=== PATIENT | female | born 2000 | race Caucasian/White ===

== ENCOUNTER 2021-06-17 18:43 | Emergency (ER) | payer BC ==
[2021-06-17 18:51] VITALS: RESP 20; TEMP 97.5
--- NOTE | 2021-06-17 19:17 | XR ---
EXAMINATION TYPE: XR wrist complete LT DATE OF EXAM: 06/17/2021 COMPARISON: NONE HISTORY: Pain. Fall. TECHNIQUE: 4 views FINDINGS: There is no sign of fracture nor dislocation. Joint spaces are normal. Scaphoid appears nor mal. Metacarpals appear intact. IMPRESSION: Negative left wrist exam.
[2021-06-17] MEDS ORDERED: IBUPROFEN 800 MG TAB PO STA (20:48)
[2021-06-17 20:51] VITALS: BP 151/102; PULSE 94
--- NOTE | 2021-06-17 20:54 | ED ---
General Adult HPI - General Chief complaint: Extremity Injury, Upper Stated complaint: Fall/Lt Wrist Pain Time Seen by Provider: 06/17/21 20:45 Source: patient, RN notes reviewed, old records reviewed Mode of arrival: ambulatory Limitations: no limitations - History of Present Illness Initial comments: Well-appearing 21-year-old female presents ambulatory with complaints of falling yesterday on an outstretched arm injuring her left wrist. Patient denies any pain in her fingers or elbow. She states that pain with flexion of the wrist that radiates into her mid forearm. -: days(s) (1) Location: left, upper extremity (wrist) Radiation: proximal (forearm) Severity scale (1-10): 6 Quality: constant Consistency: constant Improves with: immobilization Worsens with: movement Associated Symptoms: denies other symptoms Treatments Prior to Arrival: none - Related Data Previous Rx's Medication Instructions Recorded Ibuprofen [Motrin] 800 mg PO Q6HR #30 tab 06/17/21 Allergies Allergy/AdvReac Type Severity Reaction Status Date / Time No Known Allergies Allergy Verified 06/17/21 18:51 Review of Systems ROS Statement: Those systems with pertinent positive or pertinent negative responses have been documented in the HPI. ROS Other: All systems not noted in ROS Statement are negative. Past Medical History Past Medical History: No Reported History History of Any Multi-Drug Resistant Organisms: None Reported Past Surgical History: No Surgical Hx Reported Past Psychological History: No Psychological Hx Reported Smoking Status: Never smoker Past Alcohol Use History: Occasional Past Drug Use History: Marijuana General Exam Limitations: no limitations General appearance: alert, in no apparent distress Head exam: Present: atraumatic Eye exam: Present: normal appearance Respiratory exam: Absent: respiratory distress Cardiovascular Exam: Present: tachycardia Left Elbow exam: Present: normal inspection. Absent: tenderness Forearm Wrist exam: Present: full ROM, tenderness. Absent: swelling, abrasion, laceration, ecchymosis, deformity, crepitus, dislocation, erythema, tenderness over anatomical snuff box, pain with axial thumb loading Hand Wrist exam: Present: normal inspection, full ROM. Absent: tenderness, swelling, abrasion, ecchymosis, erythema Neuro motor exam: Present: wrist extension intact, thumb opposition intact, thumb IP flexion intact, thumb adduction intact, fingers 2-5 abduction intact, other (Pain with flexion of the wrist to volar surface forearm) Neurosensory exam: Present: 2-point discrimination, radial nerve intact, ulnar nerve intact, median nerve intact Vascular: Present: normal capillary refill, radial pulse. Absent: vascular compromise Neurological exam: Present: alert, oriented X3, normal gait Psychiatric exam: Present: normal affect, normal mood Skin exam: Present: warm, dry, normal color. Absent: cyanosis, diaphoretic, petechiae, pallor Course Vital Signs 06/17/21 06/17/21 18:49 20:49 Temperature 97.5 F L Pulse Rate 104 H 94 Respiratory 20 20 Rate Blood Pressure 158/108 151/102 O2 Sat by Pulse 99 98 Oximetry Medical Decision Making - Medical Decision Making Patient presents after a fall yesterday on outstretched left arm complaining of left wrist pain. X-ray is negative for fracture or dislocation. Metacarpals are intact. There is no evidence of bruising. No scaphoid tenderness. She has good range of motion and is neurovascularly intact. There is no wounds. Patient was given an Andrea wrap directed to rest, ice, elevate and use Motrin for inflammation and pain for the next 3 days. Follow-up with orthopedics or her primary care doctor next week. Return to the emergency room with any new or concerning symptoms. Patient's blood pressure is elevated at this visit and I did advise her to discuss hypertension with her primary care doctor although this may be related to pain. Patient is agreeable to this plan of care. Disposition Clinical Impression: Wrist sprain Disposition: HOME SELF-CARE Condition: Good Instructions (If sedation given, give patient instructions): Wrist Injury (ED) Additional Instructions: Rest, ice, elevate and wear andrea wrap for compression. Follow-up with the primary care doctor next week. Increase your fluid intake. Return to the emergency room with any new or concerning symptoms including increased pain, numbness or tingling. Your blood pressure was elevated at this visit. Please discuss this with your primary care doctor. It may be related to pain however it is important to have it reevaluated. Prescriptions: Ibuprofen [Motrin] 800 mg PO Q6HR #30 tab Is patient prescribed a controlled substance at d/c from ED?: No Referrals: Amrik Whitman DO [Primary Care Provider] - 1-2 days Time of Disposition: 20:59
== END 2021-06-17 21:12 | disposition home or self-care (01) ==
LOC: EC 18:43
DX: S63.502A Unspecified sprain of left wrist, initial encounter (principal); F12.90 Cannabis use, unspecified, uncomplicated; W19.XXXA Unspecified fall, initial encounter
CPT/HCPCS: 99284

== ENCOUNTER 2023-02-09 19:27 | Emergency (ER) | payer BC ==
--- NOTE | 2023-02-09 19:38 | ED ---
Back Pain HPI - General Source: patient, RN notes reviewed <Kita Carbajal - Last Filed: 02/09/23 19:36> - General Source: patient, RN notes reviewed, old records reviewed <Rishi Araujo - Last Filed: 02/09/23 23:47> - General Stated Complaint: Back pain Time Seen by Provider: 02/09/23 19:36 - History of Present Illness Initial Comments: patient is a 22-year-old female presented ER with chief complaint of back pain. Patient denies any fevers, IV drug use, saddle paresthesias, or bowel or bladder incontinence. Patient does report pain radiates. (Kita Carbajal) Patient is a 22 female who originally evaluated is a quick note. Presents with chronic lower back pain. No red flag symptoms denying any paresthesias, saddle anesthesias, paralysis, urinary or bowel incontinence or retention. No fevers or chills. 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 Wanted to be evaluated the pain is slightly worse today. Has been hurting her but became worse today. located mostly on the right paraspinal muscle. No significant radiation. No other acute complaints at this time. Denies trauma. Workup already started. (Rishi Araujo) - Related Data Previous Rx's Medication Instructions Recorded Ibuprofen [Motrin] 800 mg PO Q6HR #30 tab 06/17/21 Lidocaine 5% Patch [Lidoderm 5% 1 patch TOPICAL DAILY PRN 14 Days 02/09/23 Patch] #14 patch Allergies Allergy/AdvReac Type Severity Reaction Status Date / Time No Known Allergies Allergy Verified 06/17/21 18:51 Review of Systems ROS Other: All systems not noted in ROS Statement are negative. <Kita Carbajal - Last Filed: 02/09/23 19:36> ROS Other: All systems not noted in ROS Statement are negative. <Rishi Araujo - Last Filed: 02/09/23 23:47> ROS Statement: Those systems with pertinent positive or pertinent negative responses have been documented in the HPI. Review of Systems: CONST: Denies fever EYES: Denies blurry vision ENT: Denies nasal congestion C/V: Denies Chest pain RESP: Denies shortness of breath GI: Denies abdominal pain : Denies dysuria SKIN: Denies rash. MSK: Endorses chronic back pain. NEURO: Denies headache (Rishi Araujo) Past Medical History Past Medical History: No Reported History History of Any Multi-Drug Resistant Organisms: None Reported Past Surgical History: No Surgical Hx Reported Past Psychological History: No Psychological Hx Reported Smoking Status: Never smoker Past Alcohol Use History: Occasional Past Drug Use History: Marijuana <Kita Carbajal - Last Filed: 02/09/23 19:36> General Exam <Kita Carbajal - Last Filed: 02/09/23 19:36> <Rishi Araujo - Last Filed: 02/09/23 23:47> - General Exam Comments Initial Comments: Visual Physical Exam Vital signs reviewed General: Well-appearing, nontoxic, no acute distress. Head: Normocephalic, atraumatic Eyes: PERRLA, EOMI ENT: Airway patent Chest: Nonlabored breathing Skin: No visual rash, normal skin tone Neuro: Alert and oriented 3 Musculoskeletal: No gross abnormalities (Kita Carbajal) General: Appears in no acute distress. HEAD: Normal with no signs of head trauma. EYES: PERRLA, EOMI, conjunctiva normal, no discharge. ENT: Hearing grossly intact, normal oropharynx. RESPIRATORY: Clear breath sounds bilaterally. No wheezes, rales, or rhonchi. C/V: Regular rate and rhythm. S1 and S2 auscultated, no edema, peripheral pulses 2+ and intact throughout ABD: Abd is soft, nontender, nondistended EXT: Normal range of motion, no obvious deformity. Pelvis is stable. Mild right-sided paraspinal muscle tenderness to palpation in the lower lumbar spine. SKIN: No rashes or lesions observed on exposed skin. NEURO: Alert and oriented 4. No focal deficits.. (Rishi Araujo) Course Vital Signs 02/09/23 19:54 Temperature 98.8 F Pulse Rate 106 H Respiratory 20 Rate Blood Pressure 161/92 O2 Sat by Pulse 97 Oximetry Medical Decision Making <Kita Carbajal - Last Filed: 02/09/23 19:36> <Rishi Araujo - Last Filed: 02/09/23 23:47> - Medical Decision Making I performed the quick note portion of the exam. Electronically signed by Kita Carbajal PA-C (Kita Carbajal) Was pt. sent in by a medical professional or institution ([facility], [facility], urgent care, hospital, or custodial...) When possible be specific @ -No Did you speak to anyone other than the patient for history (EMS, parent, family, police, friend...)? What history was obtained from this source @ -No Did you review nursing and triage notes (agree or disagree)? Why? @ -I reviewed and agree with nursing and triage notes Were old charts reviewed (outside hosp., previous admission, EMS record, old EKG, old radiological studies, urgent care reports/EKG's, custodial records)? Report findings @ -No old charts were reviewed Differential Diagnosis (chest pain, altered mental status, abdominal pain women, abdominal pain men, vaginal bleeding, weakness, fever, dyspnea, syncope, headache, dizziness, GI bleed, back pain, seizure, CVA, palpatations, mental health, musculoskeletal)? @ -Differential Musculoskeletal Muscular strain, contusion, ligament sprain, fracture, arthritis, septic arthritis, bursitis, cellulitis, muscle spasm, nerve compression, DVT, arterial occlusion, herpes zoster, electrolyte abnormality, tumor.... This is not meant to be in all inclusive list EKG interpreted by me (3pts min.). @ -None done X-rays interpreted by me (1pt min.). @ -No acute injury or findings seen on lumbar spine x-ray. CT interpreted by me (1pt min.). @ -None done U/S interpreted by me (1pt. min.). @ -None done What testing was considered but not performed or refused? (CT, X-rays, U/S, labs)? Why? @ -None What meds were considered but not given or refused? Why? @ -None Did you discuss the management of the patient with other professionals (professionals i.e. JARRED Sanchez, [facility] [employer]LLOWER, lab, RT, psych nurse, social work coordinator, nursing assistants teacher, teacher, forest fire officer, case planner)? Give summary @ -No Was smoking cessation discussed for >3mins.? @ -No Was critical care preformed (if so, how long)? @ -No Were there social determinants of health that impacted care today? How? (Homelessness, low income, unemployed, alcoholism, drug addiction, transportation, low edu. Level, literacy, decrease access to med. care, usp, rehab)? @ -No Was there de-escalation of care discussed even if they declined (Discuss DNR or withdrawal of care, Hospice)? DNR status @ -No What co-morbidities impacted this encounter? (DM, HTN, Smoking, COPD, CAD, Cancer, CVA, ARF, Chemo, Hep., AIDS, mental health diagnosis, sleep apnea, morbid obesity)? @ -None Was patient admitted / discharged? Hospital course, mention meds given and route, prescriptions, significant lab abnormalities, going to OR and other pertinent info. @ -Based on patient's presentation and physical exam, has back pain. This is chronic. This appears to be musculoskeletal. Originally evaluated quickly. Has no red flag symptoms, and there is no concern for cauda equina syndrome at this time. Lumbar spine x-ray was obtained while patient was in triage and is negative for any obvious acute process. Patient was symptomatically treated with analgesic medications and discharged home. She was in agreement this plan. I did offer work note which she declined. Vital signs are within acceptable limits. I will provide the patient with a prescription for lidocaine patches. I instructed the patient to follow up with their PCP in the next 1-3 days. I explained that the patient should return to the emergency department if they experience any worsening symptoms. Strict return precautions were discussed with the patient. The patient expressed understanding of these instructions. I answered all questions that the patient had. The patient was discharged home in good condition with their prescriptions and follow up information. Undiagnosed new problem with uncertain prognosis? @ -No Drug Therapy requiring intensive monitoring for toxicity (Heparin, Nitro, Insulin, Cardizem)? @ -No Were any procedures done? @ -No Diagnosis/symptom? @ -Back pain Acute, or Chronic, or Acute on Chronic? @ -Acute on chronic Uncomplicated (without systemic symptoms) or Complicated (systemic symptoms)? @ -Uncomplicated Side effects of treatment? @ -No Exacerbation, Progression, or Severe Exacerbation? @ -No Poses a threat to life or bodily function? How? (Chest pain, USA, ID, pneumonia, PE, COPD, DKA, ARF, appy, cholecystitis, CVA, Diverticulitis, Homicidal, Suicidal, threat to staff... and all critical care pts) @ -No (Rishi Araujo) Disposition <Kita Carbajal - Last Filed: 02/09/23 19:36> Is patient prescribed a controlled substance at d/c from ED?: No Time of Disposition: 20:41 <Rishi Araujo - Last Filed: 02/09/23 23:47> Clinical Impression: Back pain Disposition: HOME SELF-CARE Condition: Good Instructions (If sedation given, give patient instructions): Acute Low Back Pain (ED) Prescriptions: Lidocaine 5% Patch [Lidoderm 5% Patch] 1 patch TOPICAL DAILY PRN 14 Days #14 patch PRN Reason: Pain Referrals: Elsi Hilario [Primary Care Provider] - 1-2 days
[2023-02-09 20:42] VITALS: BP 161/92; PULSE 106; RESP 20; TEMP 98.8
[2023-02-09] MEDS ORDERED: LIDOCAINE 4% PATCH TOPICAL STA (20:44)
[2023-02-09] MEDS ORDERED: IBUPROFEN 800 MG TAB PO STA (20:44)
--- NOTE | 2023-02-09 21:32 | XR ---
EXAMINATION TYPE: XR lumbar spine 2 or 3V DATE OF EXAM: 02/09/2023 Comparison: None Clinical History: 22-year-old female low back pain for 2 weeks Findings: 5 lumbar type vertebral bodies. Straightening of the normal lumbar lordosis. Disc spaces and vertebra l body heights are preserved. Alignment is maintained. Impression: Straightening of the normal lumbar lordosis could be positional or due to muscle spasm. Otherwise, no vertebral compression collapse or malalignment.
== END 2023-02-09 21:09 | disposition home or self-care (01) ==
LOC: EC 19:27
DX: M54.9 Dorsalgia, unspecified (principal); F12.90 Cannabis use, unspecified, uncomplicated
CPT/HCPCS: 72100; 99283

== ENCOUNTER 2023-03-01 07:03 | Emergency (ER) | payer BC ==
--- NOTE | 2023-03-01 07:32 | ED ---
General Adult HPI - General Chief complaint: Recheck/Abnormal Lab/Rx Stated complaint: Insomnia Time Seen by Provider: 03/01/23 07:07 Source: patient, RN notes reviewed, old records reviewed Mode of arrival: ambulatory Limitations: no limitations - History of Present Illness Initial comments: 22-year-old female with insomnia. Patient states she's had trouble sleeping for some time. She states she scheduled to see her primary care provider in the next 2 weeks and has a sleep study scheduled. She states she has a watch the [employer] sleep and she states that she has had quality sleep according to her watch. She does report caffeine use. She denies alcohol. - Related Data Previous Rx's Medication Instructions Recorded Ibuprofen [Motrin] 800 mg PO Q6HR #30 tab 06/17/21 Lidocaine 5% Patch [Lidoderm 5% 1 patch TOPICAL DAILY PRN 14 Days 02/09/23 Patch] #14 patch Allergies Allergy/AdvReac Type Severity Reaction Status Date / Time No Known Allergies Allergy Verified 03/01/23 07:16 Review of Systems ROS Statement: Those systems with pertinent positive or pertinent negative responses have been documented in the HPI. ROS Other: All systems not noted in ROS Statement are negative. Past Medical History Past Medical History: No Reported History History of Any Multi-Drug Resistant Organisms: None Reported Past Surgical History: No Surgical Hx Reported Past Psychological History: No Psychological Hx Reported Smoking Status: Never smoker Past Alcohol Use History: Occasional Past Drug Use History: Marijuana General Exam Limitations: no limitations General appearance: alert, in no apparent distress Head exam: Present: atraumatic, normocephalic Eye exam: Present: normal appearance, PERRL ENT exam: Present: normal exam Neck exam: Present: normal inspection. Absent: tenderness, meningismus Respiratory exam: Present: normal lung sounds bilaterally. Absent: respiratory distress, wheezes Cardiovascular Exam: Present: regular rate, normal rhythm GI/Abdominal exam: Present: soft. Absent: distended, tenderness, guarding Neurological exam: Present: alert, oriented X3, CN II-XII intact. Absent: motor sensory deficit Psychiatric exam: Present: normal affect, normal mood Skin exam: Present: warm, dry, intact Course Vital Signs 03/01/23 07:14 Temperature 98.3 F Pulse Rate 96 Respiratory 18 Rate Blood Pressure 121/83 O2 Sat by Pulse 96 Oximetry Medical Decision Making - Medical Decision Making Was pt. sent in by a medical professional or institution ([facility] Sanchez, RECREATIONAL AIDE, urgent care, hospital, or care home...) When possible be specific @ -No Did you speak to anyone other than the patient for history (EMS, parent, family, police, friend...)? What history was obtained from this source @ -No Did you review nursing and triage notes (agree or disagree)? Why? @ -I reviewed and agree with nursing and triage notes Were old charts reviewed (outside hosp., previous admission, EMS record, old EKG, old radiological studies, urgent care reports/EKG's, care home records)? Report findings @ -No old charts were reviewed Differential Diagnosis (chest pain, altered mental status, abdominal pain women, abdominal pain men, vaginal bleeding, weakness, fever, dyspnea, syncope, headache, dizziness, GI bleed, back pain, seizure, CVA, palpatations, mental health, musculoskeletal)? @ -[Insomnia EKG interpreted by me (3pts min.). @ -As above X-rays interpreted by me (1pt min.). @ -None done CT interpreted by me (1pt min.). @ -None done U/S interpreted by me (1pt. min.). @ -None done What testing was considered but not performed or refused? (CT, X-rays, U/S, labs)? Why? @ -None What meds were considered but not given or refused? Why? @ -None Did you discuss the management of the patient with other professionals (wendie sierra i.eJARRED Mead [address] RECREATIONAL AIDE, lab, RT, psych nurse, social work program coordinator, roof truss machine tender, teacher, education officer, transplant case manager)? Give summary @ -No Was smoking cessation discussed for >3mins.? @ -No Was critical care preformed (if so, how long)? @ -No Were there social determinants of health that impacted care today? How? (Homelessness, low income, unemployed, alcoholism, drug addiction, transportation, low edu. Level, literacy, decrease access to med. care, intermediate, rehab)? @ -No Was there de-escalation of care discussed even if they declined (Discuss DNR or withdrawal of care, Hospice)? DNR status @ -No What co-morbidities impacted this encounter? (DM, HTN, Smoking, COPD, CAD, Cancer, CVA, ARF, Chemo, Hep., AIDS, mental health diagnosis, sleep apnea, morbid obesity)? @ -None Was patient admitted / discharged? Hospital course, mention meds given and route, prescriptions, significant lab abnormalities, going to OR and other pertinent info. @ -22-year-old female with insomnia. She is instructed on sleep hygiene. Patient has an appointment scheduled. She will attempt measures including GoLYTELY in the evening, no caffeine, increase exercise throughout the day, and no screens in the several hours before bedtime. Undiagnosed new problem with uncertain prognosis? @ -No Drug Therapy requiring intensive monitoring for toxicity (Heparin, Nitro, Insulin, Cardizem)? @ -No Were any procedures done? @ -No Diagnosis/symptom? @ -[Insomnia Acute, or Chronic, or Acute on Chronic? @ Acute Uncomplicated (without systemic symptoms) or Complicated (systemic symptoms)? @ -default Side effects of treatment? @ -No Exacerbation, Progression, or Severe Exacerbation? @ -No Poses a threat to life or bodily function? How? (Chest pain, USA, [place], pneumonia, PE, COPD, DKA, ARF, appy, cholecystitis, CVA, Diverticulitis, Homicidal, Suicidal, threat to staff... and all critical care pts) @ -No Disposition Clinical Impression: Acute insomnia Disposition: HOME SELF-CARE Condition: Good Instructions (If sedation given, give patient instructions): Insomnia (ED) Is patient prescribed a controlled substance at d/c from ED?: No Referrals: Elsi Hilario [Primary Care Provider] - 1-2 days Time of Disposition: 07:34
[2023-03-01 07:36] VITALS: BP 121/83; PULSE 96; RESP 18; TEMP 98.3
== END 2023-03-01 07:49 | disposition home or self-care (01) ==
LOC: EC 07:03
DX: G47.00 Insomnia, unspecified (principal); F12.90 Cannabis use, unspecified, uncomplicated
CPT/HCPCS: 99283

== ENCOUNTER 2023-05-03 09:13 | Emergency (ER) | payer BC ==
[2023-05-03 09:24] VITALS: TEMP 98.1
[2023-05-03] MEDS: AMOXIC-POT CLAV 875-125MG 1 EACH TAB PO STA (09:44)
[2023-05-03] MEDS: DEXAMETHASONE SOD PHOSPHATE 10 MG/ML 1 ML VIAL IM STA (09:46)
--- NOTE | 2023-05-03 09:50 | ED ---
ENT HPI - General Chief complaint: ENT Stated complaint: Possibly strep throat Time Seen by Provider: 05/03/23 09:18 Source: patient, RN notes reviewed Mode of arrival: ambulatory Limitations: no limitations - History of Present Illness Initial comments: This is a 23-year-old female who presents to the emergency department for a sore throat. States that she did a polar plunge last week and swallowed a bunch of water. Afterwards she started to develop a sore throat that started to get much worse. Reports a significant history of strep throat, and believes that she likely has it again. She has noticed white spots in her throat as well. Denies any fever/chills or other URI symptoms. MD complaint: sore throat - Related Data Previous Rx's Medication Instructions Recorded Ibuprofen [Motrin] 800 mg PO Q6HR #30 tab 06/17/21 Lidocaine 5% Patch [Lidoderm 5% 1 patch TOPICAL DAILY PRN 14 Days 02/09/23 Patch] #14 patch Allergies Allergy/AdvReac Type Severity Reaction Status Date / Time No Known Allergies Allergy Verified 05/03/23 09:18 Review of Systems ROS Statement: Those systems with pertinent positive or pertinent negative responses have been documented in the HPI. ROS Other: All systems not noted in ROS Statement are negative. Past Medical History Past Medical History: No Reported History History of Any Multi-Drug Resistant Organisms: None Reported Past Surgical History: Tonsillectomy Past Psychological History: No Psychological Hx Reported Smoking Status: Never smoker Past Alcohol Use History: Occasional Past Drug Use History: Marijuana General Exam Limitations: no limitations General appearance: alert, in no apparent distress Head exam: Present: atraumatic, normocephalic, normal inspection ENT exam: Present: other (Posterior pharyngeal erythema. Tonsils are surgically absent.) Respiratory exam: Present: normal lung sounds bilaterally. Absent: respiratory distress, wheezes, rales, rhonchi, stridor Cardiovascular Exam: Present: regular rate, normal rhythm, normal heart sounds. Absent: systolic murmur, diastolic murmur, rubs, gallop, clicks Neurological exam: Present: alert, oriented X3, CN II-XII intact Psychiatric exam: Present: normal affect, normal mood Skin exam: Present: warm, dry, intact, normal color. Absent: rash Course Vital Signs 05/03/23 05/03/23 09:14 10:53 Temperature 98.1 F 98.1 F Pulse Rate 95 90 Respiratory 20 18 Rate Blood Pressure 120/74 122/76 O2 Sat by Pulse 96 99 Oximetry Medical Decision Making - Medical Decision Making This is a 23-year-old female who presents to the emergency department for sore throat. Was pt. sent in by a medical professional or institution? @ -No Did you speak to anyone other than the patient for history? @ -No Did you review nursing and triage notes? @ -Yes, and I agree, it is accurate with regards to the patient's symptoms. Were old charts reviewed? @ -No Differential Diagnosis? @ -Differential Sore Throat: Strep pharyngitis, herpes zoster, COVID, influenza, GERD, allergic rhinitis, mononucleosis, this is not meant to be an all-inclusive list. EKG interpreted by me (3pts min.)? @ -Not obtained X-rays interpreted by me (1pt min.)? @ -Not obtained CT interpreted by me (1pt min.)? @ -Not obtained U/S interpreted by me (1pt. min.)? @ -Not obtained What testing was considered but not performed? (CT, X-rays, U/S, labs)? Why? @ -None What meds were considered but not given? Why? @ -None Did you discuss the management of the patient with other professionals? @ -No Did you reconcile home meds? @ -No Was smoking cessation discussed for >3mins.? @ -No Was critical care preformed (if so, how long)? @ -No Were there social determinants of health that impacted care today? How? (Homelessness, low income, unemployed, alcoholism, drug addiction, transportation, low edu. Level, literacy, decrease access to med. care, [facility], rehab)? @ -No Was there de-escalation of care discussed even if they declined? (Discuss DNR or withdrawal of care, Hospice)? @ -No What co-morbidities impacted this encounter? (DM, HTN, Smoking, COPD, CAD, Cancer, CVA, Hep., AIDS, mental health diagnosis, sleep apnea, morbid obesity)? @ -None Was patient admitted / discharged? @ -Discharged. Rapid strep test negative. COVID, influenza, and RSV testing were negative. Decadron administered in the emergency department. Symptoms are likely viral in nature. Advised ibuprofen and Tylenol as needed for pain relief. Patient discharged home in stable condition. Undiagnosed new problem with uncertain prognosis? @ -None Drug Therapy requiring intensive monitoring for toxicity (Heparin, Nitro, Insulin, Cardizem)? @ -None Were any procedures done? @ -None Diagnosis/symptom? @ -Pharyngitis Acute, or Chronic, or Acute on Chronic? @ -Acute Uncomplicated (without systemic symptoms) or Complicated (systemic symptoms)? @ -Uncomplicated Side effects of treatment? @ -None Exacerbation, Progression, or Severe Exacerbation] @ -Not applicable Poses a threat to life or bodily function? @ -No Return precautions reviewed in depth, the patient is instructed to return to the emergency department with any new, worsening, or concerning symptoms. Patient verbalized understanding. This case was discussed in detail with the attending ED physician, Dr. Mora. Presentation, findings, and treatment plan discussed in detail as well. - Lab Data Lab Results 05/03/23 05/03/23 Range/Units 09:26 09:26 Influenza Type A (PCR) Not Detected (Not Detectd) Influenza Type B (PCR) Not Detected (Not Detectd) RSV (PCR) Not Detected (Not Detectd) SARS-CoV-2 (PCR) Not Detected (Not Detectd) Group A Strep (PCR) NOT DETECTED (Not Detectd) Disposition Clinical Impression: Pharyngitis Disposition: HOME SELF-CARE Instructions (If sedation given, give patient instructions): Pharyngitis (ED) Additional Instructions: Return to the emergency department with any new, worsening, or concerning symptoms. Alternate with ibuprofen and Tylenol as needed for pain relief. Follow up with your primary care provider in 1-2 days. Is patient prescribed a controlled substance at d/c from ED?: No Referrals: Elsi Hilario [Primary Care Provider] - 1-2 days Time of Disposition: 10:34
[2023-05-03 10:55] VITALS: BP 122/76; PULSE 90; RESP 18
== END 2023-05-03 10:54 | disposition home or self-care (01) ==
LOC: EC 09:13
DX: J02.9 Acute pharyngitis, unspecified (principal); F12.90 Cannabis use, unspecified, uncomplicated; Z20.822 Contact with and (suspected) exposure to COVID-19
CPT/HCPCS: 87651; 87636; 99283; 96372; J1100

== ENCOUNTER 2023-08-30 18:18 | Emergency (ER) | payer OTHER, BC ==
--- NOTE | 2023-08-30 19:07 | ED ---
Wound/Laceration HPI - General Chief Complaint: Wound/Laceration Stated Complaint: stitches Time Seen by Provider: 08/30/23 18:30 Source: patient, RN notes reviewed Mode of arrival: ambulatory Limitations: no limitations - History of Present Illness Initial Comments: This is a 23-year-old female presents the emergency department chief complaint of a laceration to her first digit. Patient states that she was at work attempting to open a popsicle running bracket, piece of sheet metal, when her hand slipped slicing it on the metal. She states that bleeding was controlled at the time of the incident and she cleansed the area with water and a gauze was applied. She states that she has full mobility of the thumb and denies paresthesias. States that she is up-to-date on her tetanus vaccine. - Related Data Previous Rx's Medication Instructions Recorded Ibuprofen [Motrin] 800 mg PO Q6HR #30 tab 06/17/21 Lidocaine 5% Patch [Lidoderm 5% 1 patch TOPICAL DAILY PRN 14 Days 02/09/23 Patch] #14 patch Acet/Diph/Lido/Bziu-Lej-Gqn-Si 5 ml PO Q4-6H PRN #240 ml 05/09/23 [Tyl/Benadryl/Lido/Maalox] predniSONE 50 mg PO DAILY 5 Days #5 tab 05/09/23 Allergies Allergy/AdvReac Type Severity Reaction Status Date / Time No Known Allergies Allergy Verified 08/30/23 18:42 Review of Systems ROS Statement: Those systems with pertinent positive or pertinent negative responses have been documented in the HPI. ROS Other: All systems not noted in ROS Statement are negative. Past Medical History Past Medical History: No Reported History Additional Past Medical History / Comment(s): sleep apnea History of Any Multi-Drug Resistant Organisms: None Reported Past Surgical History: Tonsillectomy Past Psychological History: No Psychological Hx Reported Smoking Status: Never smoker Past Alcohol Use History: Occasional Past Drug Use History: Marijuana General Exam Limitations: no limitations General appearance: alert, in no apparent distress Head exam: Present: atraumatic, normocephalic, normal inspection Eye exam: Present: normal appearance, PERRL, EOMI. Absent: scleral icterus, conjunctival injection, periorbital swelling ENT exam: Present: normal exam, mucous membranes moist Neck exam: Present: normal inspection. Absent: tenderness, meningismus, lymphadenopathy Respiratory exam: Present: normal lung sounds bilaterally. Absent: respiratory distress, wheezes, rales, rhonchi, stridor Cardiovascular Exam: Present: regular rate, normal rhythm, normal heart sounds. Absent: systolic murmur, diastolic murmur, rubs, gallop, clicks GI/Abdominal exam: Present: soft, normal bowel sounds. Absent: distended, tenderness, guarding, rebound, rigid Left Hand Wrist exam: Present: normal inspection, full ROM, laceration (first digit avulsion roughly 2.5 cm). Absent: erythema Vascular: Present: normal capillary refill. Absent: vascular compromise Back exam: Present: normal inspection Neurological exam: Present: alert, oriented X3, CN II-XII intact Course Vital Signs 08/30/23 18:39 Temperature 98.3 F Pulse Rate 77 Respiratory 18 Rate Blood Pressure 143/90 O2 Sat by Pulse 98 Oximetry Medical Decision Making - Medical Decision Making Was pt. sent in by a medical professional or institution (, PA, MANAGER SPECIALTY, urgent care, hospital, or [facility]...) When possible be specific @ -No Did you speak to anyone other than the patient for history (EMS, parent, family, police, friend...)? What history was obtained from this source @ -No Did you review nursing and triage notes (agree or disagree)? Why? @ -I reviewed and agree with nursing and triage notes Were old charts reviewed (outside hosp., previous admission, EMS record, old EKG, old radiological studies, urgent care reports/EKG's, [facility] records)? Report findings @ -No old charts were reviewed Differential Diagnosis (chest pain, altered mental status, abdominal pain women, abdominal pain men, vaginal bleeding, weakness, fever, dyspnea, syncope, headache, dizziness, GI bleed, back pain, seizure, CVA, palpatations, mental health, musculoskeletal)? @ -Laceration, skin avulsion, this list is not all inclusive. EKG interpreted by me (3pts min.). @ -None X-rays interpreted by me (1pt min.). @ -None done CT interpreted by me (1pt min.). @ -None done U/S interpreted by me (1pt. min.). @ -None done What testing was considered but not performed or refused? (CT, X-rays, U/S, labs)? Why? @ -None What meds were considered but not given or refused? Why? @ -None Did you discuss the management of the patient with other professionals (professionals i.e. , JARRED, MANAGER SPECIALTY, lab, RT, psych nurse, social work faculty member, cable machine operator, teacher, international first officer, transplant case manager)? Give summary @ -No Was smoking cessation discussed for >3mins.? @ -No Was critical care preformed (if so, how long)? @ -No Were there social determinants of health that impacted care today? How? (Homelessness, low income, unemployed, alcoholism, drug addiction, transportation, low edu. Level, literacy, decrease access to med. care, shelter, rehab)? @ -No Was there de-escalation of care discussed even if they declined (Discuss DNR or withdrawal of care, Hospice)? DNR status @ -No What co-morbidities impacted this encounter? (DM, HTN, Smoking, COPD, CAD, Cancer, CVA, ARF, Chemo, Hep., AIDS, mental health diagnosis, sleep apnea, morbid obesity)? @ -None Was patient admitted / discharged? Hospital course, mention meds given and route, prescriptions, significant lab abnormalities, going to OR and other pertinent info. @ -Discharge. 23-year-old female with a laceration to the left first digit. On examination there is a area of skin avulsion measuring approximately 2.5 cm. This area is not deep enough for suture repair. Area was cleansed with sterile water and 1% lidocaine was infiltrated in the area for cleansing. Steri-Strips placed over the wound and wrapped with gauze. Recommend that patient keep the area clean and dry over the next week. Patient is up-to-date on tetanus vac cine. Case discussed with Dr. Pack. Undiagnosed new problem with uncertain prognosis? @ -No Drug Therapy requiring intensive monitoring for toxicity (Heparin, Nitro, Insulin, Cardizem)? @ -No Were any procedures done? @ -No Diagnosis/symptom? @ -Skin avulsion Acute, or Chronic, or Acute on Chronic? @ -acute Uncomplicated (without systemic symptoms) or Complicated (systemic symptoms)? @ -uncomplicated Side effects of treatment? @ -No Exacerbation, Progression, or Severe Exacerbation? @ -No Poses a threat to life or bodily function? How? (Chest pain, [place], [place], pneumonia, PE, COPD, DKA, ARF, appy, cholecystitis, CVA, Diverticulitis, Homicidal, Suicidal, threat to staff... and all critical care pts) @ -No Disposition Clinical Impression: Skin avulsion Disposition: HOME SELF-CARE Condition: Good Instructions (If sedation given, give patient instructions): Skin Avulsion (ED) Additional Instructions: Return the emergency department if symptoms worsen or improve. Continue to keep area clean and dry. Is patient prescribed a controlled substance at d/c from ED?: No Referrals: Elsi Hilario [Primary Care Provider] - 1-2 days Time of Disposition: 19:54
[2023-08-30] MEDS: LIDOCAINE 1% INJ 10MG/ML (20 ML MDV) SQ ONE (19:29)
[2023-08-30 20:31] VITALS: BP 140/78; PULSE 71; RESP 16; TEMP 98
== END 2023-08-30 20:30 | disposition home or self-care (01) ==
LOC: EC 18:18
DX: S61.112A Laceration without foreign body of left thumb with damage to nail, initial encounter (principal); W26.8XXA Contact with other sharp object(s), not elsewhere classified, initial encounter; Y99.0 Civilian activity done for income or pay
CPT/HCPCS: 99282; J2001